=== PATIENT | female | born 1955 | race African-American/Black ===

== ENCOUNTER 2016-05-11 20:37 | Emergency (ER) | payer OTHER ==
[2016-05-11 20:46] VITALS: BP 149/79; PULSE 70; TEMP 98; BMI 23.8
[2016-05-11 21:08] LABS: BASOPHIL 1.1 % (0-2.0); EOSINOPHIL 2.1 % (0-4.5); MCHC 34.5 g/dl (32.0-36.0); MEAN CELL VOLUME 89.8 fl (80-96); MEAN PLT VOLUME 7.2 fl (7.5-11.1); NEUTROPHILS 43.3 % (42.8-82.8); PLATELET COUNT 260 K/MM3 (134-434); RDW 14.2 % (11.6-15.6); WHITE BLOOD COUNT 5.8 K/mm3 (4.0-10.0)
[2016-05-11 21:25] LABS: URINE APPEARANCE CLEAR; URINE BILIRUBIN NEGATIVE (NEGATIVE); URINE BLOOD NEGATIVE (NEGATIVE); URINE COLOR LTYELLOW; URINE GLUCOSE (UA) NEGATIVE (NEGATIVE); URINE KETONE NEGATIVE (NEGATIVE); URINE LEUK ESTERASE NEGATIVE (NEGATIVE); URINE NITRITE NEGATIVE (NEGATIVE); URINE PROTEIN NEGATIVE (NEGATIVE); URINE UROBILINOGEN NEGATIVE E.U./dl (0.2-1.0)
[2016-05-11 21:26] LABS: INR 1.36 (0.82-1.09)
--- NOTE | 2016-05-11 21:27 | PDOC ---
History of Present Illness - General History Source: Patient <Zhane Realan - Last Filed: 05/11/16 23:00> - General History Source: Patient, Family, Old Records Exam Limitations: No Limitations - History of Present Illness Initial Comments: 05/11/16 21:47 The patient is a 60 year old female with a significant past medical history of pulmonary embolism, who presents to the emergency department today for further evaluation of chest pain for 4 hours. The patient stated that she was sitting in her car when her chest pain began. She describes that pain as constant, stabbing, non-radiating and a 6/10 in severity. The patient noted that her exacerbated by inspiratory breathing. The patient notes that she has not experienced these symptoms in the past. The patient reported associated dizziness and arthralgia. The patient denies fever, chills, and sweats. The patient denies vomiting, and diarrhea. The patient denies cough and shortness of breath. PAST MEDICAL HISTORY: Pulmonary embolism PAST SURGICAL HISTORY: No significant history reported FAMILY HISTORY: No pertinent history reported SOCIAL HISTORY: None reported MEDICATIONS: Reviewed ALLERGIES: As per nursing notes <Jose Francisco Pan - Last Filed: 05/11/16 23:04> - General Chief Complaint: Chest Pain Stated Complaint: CHEST PAIN Time Seen by Provider: 05/11/16 20:40 Past History - Past Medical History DVT: Yes (PE) GI Disorders: Yes (GERD) HTN: Yes Hypercholesterolemia: Yes Thyroid Disease: Yes (hypo) Other medical history: kiari malformation, sleep apena - Psycho/Social/Smoking Cessation Hx Suicidal Ideation: No Smoking History: Never smoked Hx Alcohol Use: No Drug/Substance Use Hx: No <Jose Real - Last Filed: 05/11/16 23:00> <Jose Francisco Pan - Last Filed: 05/11/16 23:04> - Past Medical History Allergies/Adverse Reactions: Allergies Allergy/AdvReac Type Severity Reaction Status Date / Time No Known Allergies Allergy Verified 05/11/16 20:41 Home Medications: Ambulatory Orders Apixaban [Eliquis] 5 mg PO BID 05/11/16 Methocarbamol [Robaxin -] 500 mg PO TID #30 tablet 05/11/16 Review of Systems - Review of Systems Able to Perform ROS?: Yes Comments:: 05/11/16 21:47 CONSTITUTIONAL: Absent: fever, chills, diaphoresis, generalized weakness, malaise, loss of appetite HEENT: Absent: rhinorrhea, nasal congestion, throat pain, throat swelling, difficulty swallowing, mouth swelling, ear pain, eye pain, visual Changes CARDIOVASCULAR: Present: chest pain, dizziness Absent: syncope, palpitations, irregular heart rate, peripheral edema RESPIRATORY: Absent: cough, shortness of breath, dyspnea with exertion, orthopnea, wheezing, stridor, hemoptysis GASTROINTESTINAL: Absent: abdominal pain, abdominal distension, nausea, vomiting, diarrhea, constipation, melena, hematochezia GENITOURINARY: Absent: dysuria, frequency, urgency, hesitancy, hematuria, flank pain, genital pain MUSCULOSKELETAL: Present: arthralgia, Absent: myalgia SKIN: Absent: rash, itching, pallor HEMATOLOGIC/IMMUNOLOGIC: Absent: easy bleeding, easy bruising, lymphadenopathy, frequent infections ENDOCRINE: Absent: unexplained weight gain, unexplained weight loss, heat intolerance, cold intolerance NEUROLOGIC: Absent: headache, focal weakness or paresthesias, dizziness, unsteady gait, seizure, mental status changes, bladder or bowel incontinence PSYCHIATRIC: Absent: anxiety, depression, suicidal or homicidal ideation, hallucinations. <Jose Francisco Pan - Last Filed: 05/11/16 23:04> *Physical Exam - Vital Signs Last Vital Signs Temp Pulse Resp BP Pulse Ox 98 F 70 18 149/79 100 05/11/16 20:42 05/11/16 20:42 05/11/16 20:42 05/11/16 20:42 05/11/16 20:42 <Jose Real - Last Filed: 05/11/16 23:00> - Vital Signs Last Vital Signs Temp Pulse Resp BP Pulse Ox 98 F 70 18 149/79 100 05/11/16 20:42 05/11/16 20:42 05/11/16 20:42 05/11/16 20:42 05/11/16 20:42 - Physical Exam Comments: 05/11/16 21:49 GENERAL: Well developed, well nourished. Awake and alert. In no acute distress. HEENT: Normocephalic, atraumatic. PERRLA, EOMI. No conjunctival pallor. Sclera are non- icteric. Moist mucous membranes. Oropharynx is clear. NECK: Supple. Full ROM. No JVD. Carotid pulses 2+ and symmetric, without bruits. No thyromegaly. No lymphadenopathy. CARDIOVASCULAR: Regular rate and rhythm. No murmurs, rubs, or gallops. Distal pulses are 2+ and symmetric. PULMONARY: No evidence of respiratory distress. Lungs clear to auscultation bilaterally. No wheezing, rales or rhonchi. ABDOMINAL: Soft. Non-tender. Non-distended. No rebound or guarding. No organomegaly. Normoactive bowel sounds. MUSCULOSKELETAL Normal range of motion at all joints. No bony deformities or tenderness. No CVA tenderness. EXTREMITIES: No cyanosis. No clubbing. No edema. No calf tenderness. SKIN: Warm and dry. Normal capillary refill. No rashes. No jaundice. NEUROLOGICAL: Alert, awake, appropriate. Cranial nerves 2-12 intact. No deficits to light touch and temperature in face, upper extremities and lower extremities. No motor deficits in the in face, upper extremities and lower extremities. Normoreflexic in the upper and lower extremities. Normal speech. Toes are downgoing bilaterally. Gait is normal without ataxia. PSYCHIATRIC: Cooperative. Good eye contact. Appropriate mood and affect. <Jose Francisco Pan - Last Filed: 05/11/16 23:04> Heart Score/ECG Review - ECG Impressions Comment:: 05/11/16 21:50 IMAGIN. ECG Impression: Normal sinus rhythm. Normal ECG Reviewed and interpreted by Dr. Jose Real MD. <Jose Francisco Pan - Last Filed: 05/11/16 23:04> ED Treatment Course - LABORATORY CBC & Chemistry Diagram: 05/11/16 20:45 05/11/16 20:45 - ADDITIONAL ORDERS Additional order review: Laboratory Results 05/11/16 21:08 Urine Color Ltyellow Urine Appearance Clear Urine pH 6.0 Ur Specific [place] 1.005 Urine Protein Negative Urine Glucose (UA) Negative Urine Ketones Negative Urine Blood Negative Urine Nitrite Negative Urine Bilirubin Negative Urine Urobilinogen Negative Ur Leukocyte Esterase Negative 05/11/16 20:45 RBC 3.56 L MCV 89.8 MCHC 34.5 RDW 14.2 MPV 7.2 L Neutrophils % 43.3 Lymphocytes % 42.5 H Monocytes % 11.0 H Eosinophils % 2.1 Basophils % 1.1 <Jose Real Last Filed: 05/11/16 23:00> - LABORATORY CBC & Chemistry Diagram: 05/11/16 20:45 05/11/16 20:45 - ADDITIONAL ORDERS Additional order review: Laboratory Results 05/11/16 05/11/16 05/11/16 21:08 20:45 20:45 INR 1.36 H Sodium 142 Potassium 4.0 Chloride 107 Carbon Dioxide 31 Anion Gap 4 L BUN 10 Creatinine 0.8 Creat Clearance w eGFR > 60 Random Glucose 95 Calcium 9.0 Total Bilirubin 0.2 AST 22 ALT 38 Alkaline Phosphatase 81 Creatine Kinase 110 Troponin I < 0.02 Total Protein 7.2 Albumin 3.9 Urine Color Ltyellow Urine Appearance Clear Urine pH 6.0 Ur Specific [place] 1.005 Urine Protein Negative Urine Glucose (UA) Negative Urine Ketones Negative Urine Blood Negative Urine Nitrite Negative Urine Bilirubin Negative Urine Urobilinogen Negative Ur Leukocyte Esterase Negative 05/11/16 20:45 RBC 3.56 L MCV 89.8 MCHC 34.5 RDW 14.2 MPV 7.2 L Neutrophils % 43.3 Lymphocytes % 42.5 H Monocytes % 11.0 H Eosinophils % 2.1 Basophils % 1.1 - RADIOLOGY Radiograph Interpretation: 05/11/16 23:[address] Chest Impression: No CT evidence of pulmonary embolism <Jose Francisco Pan - Last Filed: 05/11/16 23:04> Medical Decision Making - Medical Decision Making 05/11/16 23:02 Dr. Real: The scribe's documentation has been prepared under my direction and personally reviewed by me in its entirery. I confirm that the note above accurately reflects all work, treatment, procedures, and medical decision making performed by me. Labs and chest CTA and EKG Are negative. Pt to follow up with her pcp when she returns home <Jose Real - Last Filed: 05/11/16 23:00> *DC/Admit/Observation/Transfer - Discharge Dispostion Admit: No <Jose Real - Last Filed: 05/11/16 23:00> - Attestations Scribe Attestion: 05/11/16 21:50 Documentation prepared by Jose Francisco Pan, acting as medical microbiologist for Jose Real MD. <Jose Francisco Pan - Last Filed: 05/11/16 23:04> Diagnosis at time of Disposition: Chest wall pain - Discharge Dispostion Disposition: HOME Condition at time of disposition: Stable - Prescriptions Prescriptions: Methocarbamol [Robaxin -] 500 mg PO TID #30 tablet - Referrals Referrals: STAFF,NOT ON [Primary Care Provider] - Nathalie Morrell MD [Staff Physician] - - Patient Instructions Printed Discharge Instructions: DI for Chest Pain Additional Instructions: Take medication as directed. Follow up with your primary care doctor when you get back home
[2016-05-11 21:35] LABS: ALBUMIN 3.9 g/dl (3.4-5.0); ALK PHOS 81 U/L (45-117); ANION GAP 4 (8-16); BILIRUBIN,TOTAL 0.2 mg/dL (0.2-1.0); CO2 31 mmol/L (21-32); CREATININE 0.8 mg/dL (0.55-1.02); GLUCOSE,RANDOM 95 mg/dL (74-106); SGOT/AST 22 U/L (15-37); SGPT/ALT 38 U/L (12-78); TOT PROT 7.2 g/dl (6.4-8.2)
[2016-05-11 21:36] LABS: TROPONIN I < 0.02 ng/ml (0.00-0.05)
[2016-05-11] MEDS ORDERED: ACETAMINOPHEN 325 MG TABLET (FP) PO ONE (22:59)
[2016-05-11] MEDS ORDERED: METHOCARBAMOL 500 MG TABLET PO ONE (22:59)
[2016-05-11] MEDS ORDERED: ACETAMINOPHEN 325 MG TABLET (FP) ONE (23:09)
[2016-05-11] MEDS ORDERED: METHOCARBAMOL 500 MG TABLET ONE (23:10)
--- NOTE | 2016-05-12 14:14 | EKG ---
Test Reason : Blood Pressure : / mmHG Vent. Rate : 064 BPM Atrial Rate : 064 BPM P-R Int : 146 ms QRS Dur : 092 ms QT Int : 400 ms P-R-T Axes : 066 065 048 degrees QTc Int : 412 ms NORMAL SINUS RHYTHM NORMAL ECG NO PREVIOUS ECGS AVAILABLE Confirmed by JAVIER GUILLAUME, ROSY ([id number]) on 05/12/2016 2:13:40 PM Referred By: Confirmed By:ROSY HERRERA MD
== END 2016-05-11 23:23 | disposition home or self-care (01) ==
LOC: JER 20:37
DX: R07.89 Other chest pain (principal); I10 Essential (primary) hypertension; E03.9 Hypothyroidism, unspecified; K21.9 Gastro-esophageal reflux disease without esophagitis; I34.1 Nonrheumatic mitral (valve) prolapse; G47.39 Other sleep apnea; Z86.711 Personal history of pulmonary embolism; Z79.01 Long term (current) use of anticoagulants
CPT/HCPCS: 36415; 71275-TC; 80053; 81003; 82550; 84484; 85025; 85610; 93005; 93010; 99281-25